=== PATIENT | male | born 1945 | race Caucasian/White ===

== ENCOUNTER 2022-05-19 15:57 | Emergency (ER) | payer MEDICARE, OTHER, SELFPAY ==
[2022-05-19 16:08] VITALS: BP 126/71; PULSE 64; RESP 20; TEMP 36.8; O2SAT 96
[2022-05-19 16:26] VITALS: BP 126/71; PULSE 64; RESP 20; TEMP 36.8; O2SAT 96
--- NOTE | 2022-05-19 17:03 | ED.URI ---
HPI - URI/Sore Throat General Chief Complaint: Upper Respiratory Infection Stated Complaint: Cough Time Seen by Provider: 05/19/22 17:04 Source: patient, RN notes reviewed and old records reviewed Mode of arrival: ambulatory Limitations: no limitations History of Present Illness HPI Narrative: 76-year-old male who presents to [facility] with complaints of increased cough and congestion and increased expectoration of dark sticky colored phlegm. Patient reports no fevers, chills or sweats, reports he has history of COPD and has been using his inhalers as prescribed. Patient denies any feelings of increased dyspnea, chest pain or pressure or palpitation. MD elicited complaint: cough and other (productive cough) Pertinent past history: COPD Onset (ago): week(s) (2) Able to tolerate fluids by mouth: Yes Treatments prior to arrival: other (inhalers) Related Data Home Medications Medication Instructions Recorded Confirmed Singulair 05/19/22 apixaban 5 mg tablet (Eliquis) 5 mg PO BID 05/19/22 05/19/22 atorvastatin 20 mg tablet (Lipitor) mg 05/19/22 budesonide-formoterol HFA 160 1 puff inhalation ONCE 05/19/22 05/19/22 mcg-4.5 mcg/actuation aerosol inhaler (Symbicort) diclofenac sodium 1 % gel topical 2 g topical QID 05/19/22 05/19/22 kit fexofenadine 180 mg tablet 180 mg PO DAILY 05/19/22 05/19/22 furosemide 20 mg tablet (Lasix) mg 05/19/22 metoprolol succinate 25 mg mg PO 05/19/22 tablet,extended release 24 hr (Toprol XL) omeprazole 40 mg capsule,delayed mg 05/19/22 release sildenafil 50 mg tablet (Viagra) mg 05/19/22 tamsulosin 0.4 mg capsule (Flomax) mg PO 05/19/22 tiotropium bromide 18 mcg capsule inhalation 05/19/22 with inhalation device (Spiriva with HandiHaler) tramadol 50 mg disintegrating mg PO 05/19/22 tablet Allergies Allergy/AdvReac Type Severity Reaction Status Date / Time ibuprofen [From Motrin] Allergy Swelling Verified 05/19/22 16:11 Review of Systems Review of Systems: CONSTITUTIONAL: Denies fever, chills, or sweats. EYES: Denies visual changes, redness, or discharge. ENT: Denies rhinorrhea, congestion, sore throat, or otalgia. CARDIOVASCULAR: Denies chest pain, palpitations, or edema. RESPIRATORY: Reported productive cough of thick dark mucous, denies any acute dyspnea. GASTROINTESTINAL: Denies abdominal pain, nausea, vomiting, or diarrhea. GENITOURINARY: Denies dysuria or hematuria. SKIN: Denies rash or itching. MUSCULOSKELETAL: Denies back pain, joint pain, or myalgia. NEUROLOGIC: Denies headache, numbness, or weakness. PSYCHIATRIC: Denies anxiety or depression. All systems reviewed & are unremarkable except as noted in HPI and below PMFSH Past Medical History Medical History (Updated 05/30/22 @ 17:39 by Isela Weiner NP) Chronic a-fib COPD (chronic obstructive pulmonary disease) Social History Social History (Updated 05/30/22 @ 17:41 by Isela Weiner NP) Smoking status: Former smoker Gender identity (if verbalized by the patient): Male Comments At time of signature, agree with nursing past medical, surgical, social and family history. There is no relevant family history pertinent to the presenting complaint Exam Narrative: GENERAL: Well-appearing, well-nourished, and in no acute distress. HEAD: Normocephalic, atraumatic. EYES: PERRLA and EOMI. ENT: Nares clear, no rhinorrhea or epistaxis. Mucous membranes moist.TM's normal with good light reflex, throat pink with no lesions or exudates. NECK: Supple. no lymphadenopathy CHEST: Coarse to auscultation. No respiratory distress. productive cough sticky dark colored mucous, SAO2 96% on room air HEART: Regular rate and rhythm. No murmur heard. Normal peripheral pulses. ABDOMEN: Soft, nontender, nondistended, normal active bowel sounds. EXTREMITIES: Normal range of motion. No edema. SKIN: Warm, dry, no rash. NEURO: No focal deficits. Alert and oriented x3. Course Course Emergency Course:
== END 2022-05-19 17:22 | disposition home or self-care (01) ==
PROVIDERS: Emergency Provider Registered Nurse
DX: J44.1 Chronic obstructive pulmonary disease with (acute) exacerbation (principal); I48.91 Unspecified atrial fibrillation
CPT/HCPCS: 99213; G0463